=== PATIENT | male | born 1970 | race African-American/Black ===

== ENCOUNTER 2020-06-21 12:49 | Emergency (ER) | payer BC, SELFPAY ==
--- NOTE | 2020-06-21 12:55 | ECG_ITS ---
Measurements Intervals [place] Rate: 73 P: 64 NM: 176 QRS: 1 QRSD: 85 T: -7 QT: 364 QTc: 402 Interpretive Statements SINUS RHYTHM DELAYED PRECORDIAL R/S TRANSITION NONSPECIFIC T-WAVE ABNORMALITY- INF/LAT LEADS BASELINE ARTIFACT- V4-V6 BORDERLINE ECG Electronically Signed On 06-22-2020 12:32:10 [employer] by Geovany Do D.O.
[2020-06-21 13:11] VITALS: BP 150/96; PULSE 88; RESP 17; TEMP 37.5; O2SAT 97
[2020-06-21 13:25] LABS: Basophils Absolute Auto 0.1 K/mm3 (0.0-0.1); Basophils Percent Auto 1.2 % (0.2-1.2); Eosinophils Absolute Auto 0.2 K/mm3 (0-0.3); Eosinophils Percent Auto 2.5 % (0-4.4); Hematocrit 39.3 % (42.0-52.0); Hemoglobin 13.7 g/dL (14.0-18.0); Immature Granulocyte Absolute 0.04 K/mm3 (0.00-0.031); Immature Granulocyte Percent A 0.4 % (0-0.5); Lymphocytes Absolute Auto 2.26 K/mm3 (0.9-3.2); Lymphocytes Percent Auto 23.6 % (18.3-44.2); Mean Corpuscular HGB Conc 34.9 g/dl (32-36); Mean Corpuscular Hemoglobin 27.7 pg (26-34); Mean Corpuscular Volume 79.4 fl (80-100); Mean Platelet Volume 9.1 fl (7.4-10.4); Monocytes Absolute Auto 0.8 K/mm3 (0.1-0.6); Monocytes Percent Auto 8.8 % (2.6-8.5); Neutrophils Absolute Auto 6.1 K/mm3 (1.3-6.7); Neutrophils Percent Auto 63.5 % (45.5-73.1); Platelet Count Result 312 k/mm3 (150-375); Red Blood Count 4.95 M/mm3 (4.6-6.20); White Blood Count 9.6 K/mm3 (4.5-10.0)
[2020-06-21 13:41] LABS: INR 0.9; Partial Thromboplastin Time 29.3 SECONDS (22.3-36.8)
[2020-06-21 14:36] LABS: Anion Gap 8 mmol/L (8-16); Blood Urea Nitrogen 12 mg/dL (9-20); Calcium 9.6 mg/dL (8.4-10.2); Carbon Dioxide 31 mmol/L (22-30); Chloride 101 mmol/L (98-107); Estimated CRCL calculation 81 ml/min; Estimated Glomerular Filt Rate > 60; Glucose 99 mg/dL (75-110); Potassium 3.7 mmol/L (3.4-5.0); Sodium 140 mmol/L (137-145)
[2020-06-21 14:47] LABS: Troponin I < 0.012 ng/mL (0.000-0.034)
[2020-06-21 15:06] VITALS: BP 172/94; PULSE 58; PULSE 59; RESP 22; O2SAT 97
--- NOTE | 2020-06-21 15:07 | ED.SOB ---
HPI - SOB/Dyspnea General Chief Complaint: Shortness of Breath/Dyspnea Stated Complaint: SOB, CP Time Seen by Provider: 06/21/20 15:07 History of Present Illness HPI Narrative: 49 yo male w/ h/o htn presents to the ED c/o chest pain. He awoke this morning with pain in the left upper back, and shoulder. Throughout the day it moved into the neck and chest. It is associated with stiffness and difficulty turning his neck. He had a recent low back injury. He became concerned when someone he may be having a heart attack or stroke. No SOB, weakness, numbness, speech difficulty, fever. Related Data Allergies Allergy/AdvReac Type Severity Reaction Status Date / Time No Known Allergies Allergy Verified 06/21/20 15:04 Review of Systems Review of Systems: All systems reviewed & are unremarkable except as noted in HPI and below Constitutional: Constitutional: Denies chills and Denies fever(s) ENT: Denies sore throat Cardiovascular: Cardiovascular: Reports chest pain and Reports radiating jaw, neck or arm pain Respiratory: Respiratory: Denies dyspnea Gastrointestinal: Gastrointestinal: Denies abdominal pain and Denies nausea Musculoskeletal: Musculoskeletal: Reports back pain Neurologic: Denies numbness and Denies weakness Psychiatric: Psychiatric: Reports anxiety PMFSH Past Medical History Medical History Anxiety HTN (hypertension) Social History Social History Smoking status: Never smoker Gender identity (if verbalized by the patient): Male Exam Const: General: healthy appearing, no acute distress and alert Orientation/consciousness: patient oriented x3 HENMT: Head: normal to inspection Neck: Neck: normal visual inspection and no lymphadenopathy Chest: Chest palpation & inspection: tenderness pectoral muscle on the left Resp: Effort & Inspection: normal respiratory effort Auscultation: clear to auscultation bilaterally, no rales, no rhonchi and no wheezes Cardio: Jugular venous distension: no JVD Rate: regular rate Rhythm: regular rhythm Heart sounds: no murmurs GI: Inspection: non-distended GI Palp: Yes Soft to palpation and No Tenderness to palpation present (GI) Back/Spine/Pelvis: Other: Tenderness in left trapezius and paraspinal muscles Skin: General skin exam: normal color Neuro: General: patient oriented x3 and moves all extremities Speech: normal speech Extrem: General: no edema Psych: Appearance: well kempt Affect: normal affect Course Vital Signs Vital signs: Vital Signs Temperature 37.5 C 06/21/20 13:11 Pulse Rate 88 06/21/20 13:11 Respiratory Rate 17 06/21/20 13:11 Blood Pressure 150/96 H 06/21/20 13:11 Pulse Oximetry 97 06/21/20 13:11 Temperature 37.5 C 06/21/20 13:11 Pulse Rate 59 L 06/21/20 15:45 Respiratory Rate 17 06/21/20 15:45 Blood Pressure 127/91 H 06/21/20 15:45 Pulse Oximetry 100 06/21/20 15:45 MDM - SOB/Dyspnea MDM Narrative Medical decision making narrative: Pain definitely seems to be musculoskeletal. I will treat symptomatically Medical Records Attestation: I reviewed the patient's medical records. Lab Data Attestation: I reviewed the patient's lab results. Result diagrams: 06/21/20 13:16 06/21/20 13:16 Labs: Lab Results 06/21/20 06/21/20 06/21/20 Range/Units 13:16 13:16 13:16 WBC 9.6 (4.5-10.0) K/mm3 RBC 4.95 (4.6-6.20) M/mm3 Hgb 13.7 L (14.0-18.0) g/dL Hct 39.3 L (42.0-52.0) % MCV 79.4 L (80-100) fl MCH 27.7 (26-34) pg MCHC 34.9 (32-36) g/dl RDW 13.0 (11.5-14.5) % Plt Count 312 (150-375) k/mm3 MPV 9.1 (7.4-10.4) fl Immature Gran % (Auto) 0.4 (0-0.5) % Neut % (Auto) 63.5 (45.5-73.1) % Lymph % (Auto) 23.6 (18.3-44.2) % Bay % (Auto) 8.8 H (2.6-8.5) % Eos % (Auto) 2.5 (0-4.4) % Baso % (Auto)
[2020-06-21] MEDS: CYCLOBENZAPRINE HCL 10 MG TABLET PO (15:39)
[2020-06-21] MEDS: KETOROLAC 30 MG/ML VIAL (*BKC) IV PUSH (15:39)
[2020-06-21 15:45] VITALS: BP 127/91; PULSE 59; RESP 17; O2SAT 100
== END 2020-06-21 15:46 | disposition home or self-care (01) ==
LOC: ANHED 15:43
PROVIDERS: Emergency Medicine; Emergency Provider Emergency Medicine
DX: R07.89 Other chest pain (principal); F41.9 Anxiety disorder, unspecified; I10 Essential (primary) hypertension; R94.31 Abnormal electrocardiogram [ECG] [EKG]
CPT/HCPCS: 36415; 80048; 84484; 85025; 85610; 85730; 93005; 96374; 99284; A9270; J1885